=== PATIENT | male | born 2000 | race Caucasian/White ===

== ENCOUNTER 2021-05-21 15:41 | Inpatient (IN) ==
[2021-05-21 16:26] LABS: Basophils % 0.7 %; Eosinophils # 0.1 K/mcL (0.0-0.6); Eosinophils % 1.3 %; Hematocrit 50.5 % (37.5-50.1); Hemoglobin 16.6 g/dL (12.9-16.9); Immature Granulocytes % 0.2 % (0-4); Lymphocytes # 1.4 K/mcL (0.6-4.6); Lymphocytes % 23.6 %; Mean Corpuscular HGB Conc 32.9 g/dL (31.6-35.5); Mean Corpuscular Hemoglobin 29.7 pg (28.0-33.3); Mean Corpuscular Volume 90.3 fL (83.0-100.0); Monocytes # 0.5 K/mcL (0.0-1.3); Monocytes % 8.1 %; Platelet Count 332 K/mcL (140-400); Red Blood Count 5.59 M/mcL (4.19-5.50); Red Cell Distribution Width 11.9 % (11.5-14.5); Segmented Neutrophils % 66.1 %; White Blood Count 6.1 K/mcL (4.3-11.1)
[2021-05-21 16:40] LABS: Acetaminophen < 10 mcg/mL (10-20); BUN/Creatinine Ratio 11 (6-26); Blood Urea Nitrogen 8 mg/dL (6-20); Carbon Dioxide 28 mEq/L (23-29); Chloride 102 mEq/L (98-107); Ethanol < 10 mg/dL (Less than 10); Glucose 94 mg/dL (70-105); Osmolality,Calculated 282 (280-300); Potassium 3.8 mEq/L (3.5-5.1); Salicylate < 2.5 mg/dL (15.0-30.0); Sodium 137 mEq/L (136-145); eGFR For African Americans > 60 (> 60); eGFR For Non-African Americans > 60 (> 60)
[2021-05-21 16:49] LABS: Bilirubin,Urine Negative (Negative); Blood,Urine Negative (Negative); Clarity,Urine Clear (Clear); Color,Urine Light-Yellow (Yellow); Glucose,Urine (UA) Normal (Normal); Ketones,Urine Negative (Negative); Leukocyte Esterase,Urine Negative (Negative); Nitrite,Urine Negative (Negative); PH,Urine 7.5 pH Units (5.0-8.0); Protein,Urine Negative (Neg-Trace); Specific Gravity,Urine 1.012 (1.010-1.025); Urobilinogen,Urine Normal (Normal)
[2021-05-21 16:54] LABS: Amphetamine Screen,Urine Negative ng/mL (Cutoff=1000); Barbiturate Screen,Urine Negative ng/mL (Cutoff=200); Benzodiazepines Screen,Urine Negative ng/mL (Cutoff=200); Cannabinoid Screen,Urine Negative ng/mL (Cutoff = 50); Cocaine Screen,Urine Negative ng/mL (Cutoff= 300); Opiate Screen,Urine Negative ng/mL (Cutoff=300); Phencyclidine Screen,Urine Negative ng/mL (Cutoff=25)
[2021-05-21 17:21] LABS: Influenza A PCR Negative (Negative); Influenza B PCR Negative (Negative); Resp. Syncytial Virus PCR Negative (Negative)
[2021-05-21 17:22] LABS: SARS-CoV-2 by PCR (In House) Negative (Negative)
[2021-05-21] MEDS ORDERED: Nicotine 7 MG PATCH.TD24 TD ONE (19:59)
[2021-05-21] MEDS ORDERED: haloperidoL 5 MG TABLET PO PRN (20:15)
[2021-05-21] MEDS ORDERED: Haloperidol Lactate 5 MG/ML VIAL IM PRN (20:15)
[2021-05-21] MEDS ORDERED: Ibuprofen 400 MG TABLET PO PRN (20:15)
[2021-05-21] MEDS ORDERED: Mag Hydrox/Al Hydrox/Simeth 30 ML UDC PO PRN (20:15)
[2021-05-21] MEDS ORDERED: *HR* LORazepam 1 MG TABLET PO PRN (20:15)
[2021-05-21] MEDS ORDERED: *HR* LORazepam 2 MG/ML VIAL IM PRN (20:15)
[2021-05-21] MEDS: traZODone 50 MG TABLET PO PRN (21:31)
[2021-05-21] MEDS: hydrOXYzine pamoate 25 MG CAPSULE PO PRN (21:31)
[2021-05-21] MEDS: Nicotine 2 MG GUM BC PRN (21:31)
[2021-05-22] MEDS: Nicotine 21 MG PATCH.TD24 TD SCH (08:39)
[2021-05-22] MEDS: traZODone 50 MG TABLET PO PRN (21:56)
[2021-05-22] MEDS: hydrOXYzine pamoate 25 MG CAPSULE PO PRN (21:56)
[2021-05-22] MEDS: ARIPiprazole 5 MG TABLET PO SCH (21:56)
[2021-05-22] MEDS: Nicotine 2 MG GUM BC PRN (21:58)
[2021-05-23] MEDS: Nicotine 21 MG PATCH.TD24 TD SCH (08:25)
[2021-05-23] MEDS: ARIPiprazole 5 MG TABLET PO SCH (21:30)
[2021-05-23] MEDS: hydrOXYzine pamoate 25 MG CAPSULE PO PRN (21:31)
[2021-05-23] MEDS: Nicotine 2 MG GUM BC PRN (21:31)
[2021-05-23] MEDS: Melatonin 3 MG TABLET PO SCH (21:31)
[2021-05-23] MEDS: traZODone 50 MG TABLET PO PRN (21:31)
[2021-05-24] MEDS: Nicotine 21 MG PATCH.TD24 TD SCH (08:28)
[2021-05-24] MEDS: Melatonin 3 MG TABLET PO SCH (20:25)
[2021-05-24] MEDS: traZODone 50 MG TABLET PO PRN (20:25)
[2021-05-24] MEDS: ARIPiprazole 5 MG TABLET PO SCH (20:25)
[2021-05-24] MEDS: hydrOXYzine pamoate 25 MG CAPSULE PO PRN (20:25)
[2021-05-24] MEDS: Nicotine 2 MG GUM BC PRN (20:27)
[2021-05-25] MEDS: Nicotine 21 MG PATCH.TD24 TD SCH (08:49)
[2021-05-25 09:36] VITALS: BP 119/79; PULSE 84; TEMP 98.2; O2SAT 99
== END 2021-05-25 12:35 | disposition home or self-care (01) | DRG 751 ==
LOC: EMEROOARM 15:41 → 1ANU 19:51
PROVIDERS: ADMIT Psychiatry & Neurology Psychiatry; ATTEND Psychiatry & Neurology Psychiatry